=== PATIENT | female | born 1990 | race Caucasian/White ===

== ENCOUNTER 2017-07-19 21:38 | Emergency (ER) | payer BC, OTHER ==
[~2017-07-19] VITALS: Ht 162.6 cm; Wt 52.0 kg
[2017-07-19 21:40] VITALS: Ht 162.6 cm; Wt 52.0 kg
[2017-07-19] MEDS ORDERED: ONDANSETRON (ODT) 4 MG TAB ODT STA ×2 (21:55→23:58)
[2017-07-19] MEDS ORDERED: morphine 10 MG INJ IM ONE (22:00)
--- NOTE | 2017-07-19 22:00 | ERD ---
ER Documentation Chief Complaint Date/Time DATE: 07/19/17 TIME: 21:58 Chief Complaint c/o pelvic pain with VB. No relief with meds. Hx of endometriosis. HPI This is a 27-year-old female with a history of endometriosis presenting to the emergency department complaining of acute on chronic pelvic pain. Patient states that the pain is normal for her, she rates it moderate to severe. Patient states that she already took Aleve and Percocet without any relief. She admits to having vaginal bleeding. Denies any fevers, dysuria ROS All systems reviewed and are negative except as per history of present illness. Physical Exam Vitals Vital Signs Date Time Temp Pulse Resp B/P Pulse Ox O2 Delivery O2 Flow Rate FiO2 07/19/17 21:40 98.1 78 18 109/61 99 Physical Exam GENERAL: well-developed/well-nourished, in no apparent distress, non-toxic appearing HENT: NC/AT, moist mucous membranes EYES: Conjunctiva normal NECK: Supple, no lymphadenopathy PULM: CTA bilaterally, no rales, rhonchi, or wheezing heard CV: Normal S1S2, RRR, good capillary refill GI: Soft, non-distended, mild tender to palpation pelvic Normal bowel sounds, no masses or organomegaly felt on exam No gross peritonitis, no bruits Negative Rovsing, negative Roche, negative McBurney's point, Negative CVAT BACK: No masses EXT: No clubbing, cyanosis, or edema NEURO: Alert and Orientated SKIN: Intact, normal turgor PSYCH: Normal mood and mentation Results 24 hrs Current Medications Medications (Trade) Dose Ordered Sig/David Route PRN Reason Start Time Stop Time Status Last Admin Dose Admin Morphine Sulfate (morphine) 8 mg ONCE ONCE IM 07/19/17 22:00 07/19/17 22:01 Ondansetron HCl (Zofran Odt) 8 mg ONCE STAT ODT 07/19/17 21:55 07/19/17 21:57 DC Procedures/MDM This is a 27-year-old female with a history of endometriosis presenting to the emergency department complaining of acute on chronic pelvic pain. Patient's pain is normal for her, she presents here for pain control. I have a low suspicion for ovarian torsion, ruptured ovarian cyst. Patient was given morphine and Zofran in the ED. Since patient has already had Percocet and Aleve at home, she was not discharged with any medications. Discussed to continue to follow-up with [facility]. She understands and agrees this plan Departure Diagnosis: Primary Impression: Acute pain in female pelvis Condition: Stable Patient Instructions: Endometriosis, Pelvic Pain, Unknown Cause Referrals: [facility] [place] [id number] [facility] [address] [place] [address] OFFICE FAX , [facility] [address] [place] [address] [address]. MALDONADO DUNNELL [address] [place] [address] [address] [facility] [address] [address], [address], [facility] [address] [address] [facility] [address] [place] [address] [facility] [address] [place] [address] [phone] [facility] [id number] - JOSEPH SETHI [address], [facility] [place] [address] [address] DILL, R[place] [address] [facility], [place] [address] [address] WATERS, [facility] [address] [place], [place] [address] JESSIE BLACKWOOD PA-C Jul 19, 2017 22:00
[2017-07-19] MEDS ORDERED: HYDROmorphONE 1 MG/ML SYG IM STA (22:20)
[2017-07-19 22:46] LABS: URINE BLOOD (Dip) POC Negative (NEGATIVE)
--- NOTE | 2017-07-19 23:08 | QN ---
Documentation Comment My independent concise history is abdominal pain" growths all over my body which is going to my lungs". My pertinent physical exam findings are diffuse abdominal pain without rebound or guarding. The plan is laboratory studies and ultrasound of the abdomen. The patient was requesting a "full body scan" and I told her that this would not be reasonable as there is a significant amount of radiation that I do not believe she requires at this time. She understood and was okay with holding off on the CT scan at this time. BRUNA COBURN MD Jul 19, 2017 23:08
[2017-07-19] MEDS ORDERED: METOCLOPRAMIDE 10 MG TAB PO STA (23:50)
[2017-07-20] MEDS: ONDANSETRON 4 MG INJ IV STA ×2 (00:07→00:29)
--- NOTE | 2017-07-20 00:14 | RADRPT ---
PROCEDURE: ULTRASOUND EVALUATION OF THE FEMALE PELVIS: CLINICAL INDICATION: 27 years of age, female. Pelvic pain . COMPARISON: None available. TECHNIQUE: Real-time sonographic images of the pelvis were obtained transabdominally and transvagina lly utilizing figueroa scale, color, and Doppler imaging. FINDINGS: LMP: June 28, 2017 Uterus: Appearance: Normal. Position: Retroflexed Size: cm. (Volume 74 mL) Endometrial stripe: 0.6 cm Right ovary and adnexa: Size: 2.5 x 4.4 x 3.6 cm. (Volume 20 mL) Appearance: There is a 3.5 x 1.8 x 2.6 cm complex cyst with low-level internal echoes enlarging the right ovary. Normal arterial flow is identified in ovarian stroma surrounding this cyst. Left ovary and adnexa: Size: 2.4 x 1.2 x 2 cm. (Volume 2.9 mL) Appearance: Normal morphology. No masses. Arterial flow present. Free fluid: Trace free pelvic fluid. IMPRESSION: Enlarged right ovary due to a 3.5 cm complex cyst with low-level internal echoes. Differential diagn osis includes, but is not limited to, hemorrhagic cyst, endometrioma or abscess if there is PID. Cli nical correlation is required. In this clinical setting of pain, recommend follow-up ultrasound in 6 weeks to document resolution. Findings were discussed with Dana THAKKAR by Dr. Brigid Rucker on July 20, 2017 at 12:11 a.m.. She indicates the patient has a history of endometriosis. Correlation with previous imaging would b e helpful. RPTAT: HCTS Physician Renetta Date Time Electronically viewed and signed by Physician Renetta on 07/20/2017 00:14 CS/
[2017-07-20 00:46] LABS: BASOPHILS % 0.4 % (0.0-2.0); EOSINOPHILS # 0.1 10^3/ul (0.0-0.5); HEMOGLOBIN 12.3 g/dl (12.0-16.0); LYMPHOCYTES # 2.5 10^3/ul (0.8-2.9); LYMPHOCYTES % 35.9 % (15.0-51.0); MEAN CORPUSCULAR HEMOGLOBIN 33.2 pg (29.0-33.0); MEAN CORPUSCULAR HGB CONC 34.2 g/dl (32.0-37.0); MEAN CORPUSCULAR VOLUME 97.3 fl (82.0-101.0); MEAN PLATELET VOLUME 9.8 fl (7.4-10.4); MONOCYTE # 0.8 10^3/ul (0.3-0.9); MONOCYTES % 11.7 % (0.0-11.0); NEUTROPHIL # 3.5 10^3/ul (1.6-7.5); NEUTROPHILS % 50.7 % (39.0-77.0); PLATELET COUNT 212 10^3/UL (140-415); RED CELL DISTRIBUTION WIDTH 12.2 % (11.5-14.5); WHITE BLOOD COUNT 6.9 10^3/ul (4.8-10.8)
[2017-07-20 01:03] LABS: ALBUMIN 3.3 g/dl (3.3-4.9); ALBUMIN/GLOBULIN RATIO 1.22; CALCIUM 8.4 mg/dl (8.4-10.2); CREATININE 0.61 mg/dl (0.44-1.00); POTASSIUM 3.9 mmol/L (3.5-5.1)
[2017-07-20] MEDS ORDERED: TRIM300C16 PO (01:07)
[2017-07-20] MEDS ORDERED: TRIMETHOBENZAMIDE 100 MG/ML VIAL IM ONE (01:30)
[2017-07-20 01:45] VITALS: BP 99/52; PULSE 57; RESP 18; TEMP 97.3
== END 2017-07-20 02:05 | disposition home or self-care (01) ==
LOC: FTE 21:38
DX: R10.2 Pelvic and perineal pain (principal)
CPT/HCPCS: 36415; 76830; 76856; 80053; 81003; 83690; 85025; 96372; 96374; J1170; J2405; J3250; Z7502; Z7610; J2270